=== PATIENT | female | born 1990 | race African-American/Black ===

== ENCOUNTER 2018-08-15 10:00 | Emergency (ER) | payer SELFPAY ==
[~2018-08-15] VITALS: Ht 167.6 cm; Wt 113.0 kg
[2018-08-15] MEDS ORDERED: FLUCONAZOLE 100MG TABLET PO ONE (12:15)
[2018-08-15] MEDS ORDERED: IBUPROFEN 800MG TABLET PO ONE (12:15)
[2018-08-15 12:45] LABS: CLARITY URINE CLEAR (CLEAR); COLOR URINE YELLOW (YELLOW); KETONES URINE NEGATIVE (NEGATIVE); LEUKOCYTE ESTERASE URINE 3+ (NEGATIVE); NITRITE URINE NEGATIVE (NEGATIVE); OCCULT BLOOD URINE NEGATIVE (NEGATIVE); PH URINE 6.5 (4.5-8.0); PROTEIN URINE NEGATIVE (NEGATIVE); UROBILINOGEN URINE 0.2 E.U./dL (0.2-1.0)
[2018-08-15 14:10] VITALS: BP 126/72
[2018-08-20 04:17] LABS: CHLAMYDIA TRACHOMATIS NAA Negative (Negative); NEISSERIA GONORRHOEAE NAA Negative (Negative)
== END 2018-08-15 14:36 | disposition home or self-care (01) ==
LOC: ER 10:00
DX: B37.49 Other urogenital candidiasis (principal); J45.909 Unspecified asthma, uncomplicated; F17.200 Nicotine dependence, unspecified, uncomplicated; F12.10 Cannabis abuse, uncomplicated; Z98.890 Other specified postprocedural states
CPT/HCPCS: 81003; 81025; 86703; 87491; 87591; 99284; Z7610